=== PATIENT | female | born 1960 | race Caucasian/White ===

== ENCOUNTER → 2016-06-24 | Outpatient (CLI) | payer OTHER, SELFPAY ==
--- NOTE | ~2016-06-24 | ESTC ---
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 Risk Factors The patient risk factors include:prior PCI on 02/11/2010;obesity, former tobacco use, treated hypercholesterolemia, treated hypertension, insulin treated diabetes mellitus and dyslipidemia. Conclusions Summary Perfusion Images: The overall quality of the study is good. Left ventricular cavity is noted to be normal on the stress and normal on the rest images. There is no evidence of abnormal lung activity. The right ventricle is not visualized an cannot be assessed. Impression ECG portion of lexiscan stress test is clinically negative for ischemia by diagnostic criteria. Myocardial perfusion imaging is normal. Overall left ventricular systolic function was normal without regional wall motion abnormalities. Calculated LVEF is 60% and TID ratio is normal. There are no previous studies for comparison. Stress Protocols Resting ECG Normal sinus rhythm. Pre-stress physical exam: Patient assessed by Deangelo PORTILLO prior to testing. Chest - CTA Cardio - RRR, S1, S2 Predicted HR: 167 bpm HR response: Appropriate BP response: Appropriate ECG Findings No ECG changes suggestive of ischemia. Arrhythmias No rhythm abnormality with yari - did have occasional PVC's during 2nd stage of LISA and during recovery. Symptoms Shortness of breath. Headache. Complications Procedure complication: None. Stress Interpretation Patient walked for 5:50 mintes through 2 stages of LISA protocol. HR Max 122, unable to walk any further - treadmill ended - switched to yari. Appropriate hemodynamic response to Lexiscan. No significant ST-T wave changes with Lexiscan. ECG portion is negative for ischemia by diagnostic criteria. Will correlate with nuclear images. Imaging Results Summed scores - Summed stress score: 14 - Summed rest score: 14 - Summed difference score: 0 Stress ejection Ejection fraction:60 % EDV :130 ml ESV :52 ml Stroke volume :78 ml LV mass :155 gr Imaging Protocols Rest Stress Isotope:Tc99m Sestamibi IV Isotope: Tc99m Sestamibi IV Isotope dose:15.54 mCi Isotope dose:46.3 mCi Date:06/24/2016 07:20 Date:06/24/2016 09:22 Technique: SPECT Technique: Gated Supine SPECT Supine Scan Time:45-60 minutes post Scan Time:45-60 minutes post injection injection Procedure Medications - Regadenoson (Lexiscan) 0.4 mg IV over 10-15 sec. I.V. 0.4 mg. Medical History Admission Data Admission date: 06/24/2016 Admission Time: 06:35 Hospital Status: Outpatient. Signatures dtt: JOSELYN JIMENEZ dtd: 06/24/16 0830 Physician Self Edit
== END | disposition disaster alternative care site (69) ==
LOC: GRAD 06:35
DX: I25.10 Atherosclerotic heart disease of native coronary artery without angina pectoris (principal); I10 Essential (primary) hypertension; E78.5 Hyperlipidemia, unspecified; E66.9 Obesity, unspecified; E78.00 Pure hypercholesterolemia, unspecified; E11.9 Type 2 diabetes mellitus without complications; R06.09 Other forms of dyspnea; Z87.891 Personal history of nicotine dependence
CPT/HCPCS: A9500; J2785

== ENCOUNTER → 2016-08-13 | Outpatient (CLI) | payer OTHER, SELFPAY ==
[2016-08-13 09:19] LABS: ALBUMIN 3.9 gm/dL (3.5-5.0); ALK PHOS 89 IU/L (33-138); ALT 29 IU/L (12-78); ANION GAP 10.7 (10.0-19.0); AST 22 IU/L (10-40); BLOOD UREA NITROGEN 14 mg/dL (6-24); CALCIUM 9.2 mg/dL (8.5-10.5); CHLORIDE 109 mMol/L (96-110); CO2 26 mMol/L (22-32); CREATININE 0.6 mg/dL (0.5-1.1); ESTIMATED GFR (MDRD EQUATION) > 60; POTASSIUM 4.7 mMol/L (3.7-5.1); SODIUM 141 mMol/L (135-145); TOTAL BILIRUBIN 0.6 mg/dL (0.0-1.5); TOTAL PROTEIN 7.3 g/dL (6.0-8.4)
== END | disposition disaster alternative care site (69) ==
LOC: LNHI 08:58
PROVIDERS: Internal Medicine Interventional Cardiology
DX: I25.119 Atherosclerotic heart disease of native coronary artery with unspecified angina pectoris (principal); E78.5 Hyperlipidemia, unspecified